=== PATIENT | female | born 1960 | race Caucasian/White ===

== ENCOUNTER 2018-05-07 16:59 | Outpatient (REF) | payer OTHER, SELFPAY ==
--- NOTE | 2018-05-07 14:20 | PAPFT_PTH ---
PATIENT: Marce Garcia LOC: [facility] U#:[id number] AGE/SX: 58/F ROOM: RE05/07/[address]: Eleuterio Knight MD : [id number] BED: DIS: 05/07/2018 SPEC #: [id number] RECD: 05/07/18 18:21 STATUS: AIDE REQ #: [id number] RAFAELA: 05/07/18 14:[address]: Eleuterio Knight DEPT: [facility] Cytology RECD BY: Heidi Casper Tissues: 1 - CX/ENDOCX FOR PAP SMEARS Procedures: PAP THIN PREP/UVM Screening HPV DNA PROBE Comments: [id number]
== END 2018-05-07 17:19 ==
LOC: LBN 16:59
PROVIDERS: PCP Family Medicine; Visit Provider Family Medicine
DX: Z12.4 Encounter for screening for malignant neoplasm of cervix (principal); Z11.51 Encounter for screening for human papillomavirus (HPV)
CPT/HCPCS: 88142; 87624

== ENCOUNTER 2018-06-14 02:39 | Outpatient (CLI) | payer OTHER, SELFPAY | END 2018-06-14 02:59 | PROVIDERS: PCP Family Medicine; Visit Provider Family Medicine | DX: E03.9 Hypothyroidism, unspecified (principal) | CPT/HCPCS: 36415; 84443 ==

== ENCOUNTER 2018-07-17 14:07 | Outpatient (CLI) | payer OTHER, SELFPAY ==
--- NOTE | 2018-07-17 15:10 | DI.RAD_ITS ---
SYMPTOM/DIAGNOSIS: RT UPPER BACK PAIN AFTER COUGH PA AND LATERAL CHEST: No priors for comparison. The heart is normal in size. The lungs are clear. The mediastinal structures and pleura appear intact. CONCLUSION: Normal chest.
[2018-07-17 15:56] LABS: Bilirubin Negative (Negative); Blood Negative (Negative); Clarity Clear; Glucose Negative (Negative); Ketones Negative (Negative); Leukocyte Esterase Negative (Negative); Nitrite Negative (Negative); Urobilinogen 0.2 EU/dL (Up TO 0.2); pH 6.5 (5-8)
== END 2018-07-17 14:27 ==
PROVIDERS: PCP Family Medicine; Visit Provider Family Medicine
DX: R39.11 Hesitancy of micturition (principal); M54.9 Dorsalgia, unspecified; R05 Cough
CPT/HCPCS: 71046; 81003

== ENCOUNTER 2018-08-03 06:05 | Day surgery (SDC) | payer OTHER, SELFPAY ==
[2018-08-03 06:23] VITALS: BP 139/96; PULSE 78; RESP 18; TEMP 36; O2SAT 98
[2018-08-03] MEDS: Lactated Ringers 1,000 ML 30 ML IV (06:49)
--- NOTE | 2018-08-03 09:21 | COLE_ITS ---
Date of service: 08/03/18 Time of Service: 09:17 Colonoscopy Report Date of procedure: 08/03/18 Pre-op diagnosis general: screening colonoscopy Post-op diagnosis procedure note: other (diverticulosis) Procedure: colonoscopy Surgeon: Dewayne Da Silva III Anesthesia proc note operative: MAC Pathology: none sent Complications: Other (scope had difficulty advanciing Dr Tellez assisted in reaching the cecum) Disposition: PACU Prep: GoLYTELY Findings: diverticulum Procedure Description: After informed consent was obtained the patient was taken to the procedure room and placed in a left decubitous position. Monitors were applied and a time out was done. The patients name, date of , procedure, allergies to medications and metal in their body was reviewed. The patient was then sedated. Once sedated and comfortable a rectal exam was done. External exam was normal. Internal exam revealed a normal sphincter tone and no palpable masses. The scope was then introduced and retrofelexed. No internal hemorrhoids were identified. The scope was then advanced to the cecum anatomical difficulty the scope continued to not advance and coil in the sigmoid area. Due to this not being able to advance past the hepatic flexure initially Dr. Tellez assisted and retracted the scope and was able to eventually reach the cecum and see the appendiceal orifice as well as the terminal ileum. The TI and appendiceal orifice were identified. The prep was adequate. The scope was then slowly retracted over 10 minutes back into the rectum. No Polyps were removed. The sco pe was removed and the patient was woken up and taken back to Same day surgery in stable condition. The patient tolerated the procedure well and there were no immediate complications. Follow up: The patient should follow up in 10 years unless they develop changes in bowel habits or other new gastrointestinal complaints.
--- NOTE | 2018-08-03 09:21 | W.PM.DSUDISC ---
Discharge Plan Disposition Patient Disposition: HOME Condition: Stable Discharge Details Reason For Visit: Screening colonoscopy Attending Provider: Dewayne Da Silva III Primary Care Provider: Eleuterio Knight Home Meds and New Rx's Prescriptions: Continued meloxicam 15 mg tablet 15 mg PO ONCE PRNRF: 0 bisacodyl [Dulcolax (bisacodyl)] 5 mg tablet,delayed release (DR/EC) 5 mg PO ONCE Qty: 4 RF: 0 polyethylene glycol 3350 17 gram/dose powder 255 g PO ONCE Qty: 255 RF: 0 ascorbic acid (vitamin C) 1,000 MG tablet 1,000 mg PO DAILY RF: 0 multivitamin with iron 1 EACH tablet 1 ea PO DAILY RF: 0 cholecalciferol (vitamin D3) 1,000 UNIT tablet 1,000 unit PO DAILY RF: 0 omega-3 fatty acids-fish oil 1 EACH capsule 1 ea PO DAILY RF: 0 zinc amino acid chelate 50 MG tablet 50 mg PO DAILY RF: 0 calcium carbonate 600 MG tablet 600 mg PO BID RF: 0 glucosam-chond oe-dqtujl-xf ac 1 EACH capsule 1 ea PO DAILY PRNRF: 0 magnesium amino acid chelate 100 MG tablet 100 mg PO DAILY PRNRF: 0 levothyroxine 175 mcg tablet 175 mcg PO DAILY Qty: 90 RF: 3 cyclobenzaprine 5 mg tablet 5 - 10 mg PO HS PRN (Reason: muscle spasm) Qty: 40 RF: 0 Discharge Instructions Stand Alone Forms: Colonoscopy Post Instructions, Kanwal Mercer (DSU) Activity:: Activity as Tolerated Diet:: As Tolerated Discharge Orders Discharge Orders: Discharge Order (Routine); Ordered 08/03/18 Ordered By: Dewayne Da Silva III DS: Diagnosis Discharge Diagnosis (1) Diverticulosis: Status: Acute (2) Colonoscopy planned: Status: Acute
[2018-08-03 09:53] VITALS: BP 120/75; PULSE 65; RESP 18; TEMP 36.2; O2SAT 98
== END 2018-08-03 10:38 | disposition home or self-care (01) ==
PROVIDERS: PCP Family Medicine; Visit Provider Surgery
PROC: 0DJD8ZZ Inspection of Lower Intestinal Tract, Via Natural or Artificial Opening Endoscopic (ICD-10-PCS; CPT 45378; principal; 2018-08-03 07:30)
DX: Z12.11 Encounter for screening for malignant neoplasm of colon (principal); K57.30 Diverticulosis of large intestine without perforation or abscess without bleeding
CPT/HCPCS: 45378

== ENCOUNTER 2019-05-09 13:28 | Outpatient (CLI) | payer OTHER, SELFPAY ==
--- NOTE | 2019-05-09 13:00 | DI.RAD_ITS ---
EXAM: XR FOOT RT COMPLETE INDICATION: right lateral heel pain, M79.673. COMPARISON: No exams were available for comparison TECHNIQUE: 2D digital imaging was performed. FINDINGS: There are mild degenerative changes of the 1st MTP joint. There is slight spurring at the Achilles i nsertion. Small spur is noted at the plantar fascia. There is no abnormal plantar fascial calcifica tion. IMPRESSION: Heel spur.
== END 2019-05-09 13:48 ==
PROVIDERS: PCP Family Medicine; Visit Provider Family Medicine
DX: M79.671 Pain in right foot (principal); M19.071 Primary osteoarthritis, right ankle and foot; M77.31 Calcaneal spur, right foot
CPT/HCPCS: 73630

== ENCOUNTER 2019-06-05 01:33 | Outpatient (CLI) | payer OTHER, SELFPAY ==
--- NOTE | 2019-06-05 15:14 | DI.MAMMO_ITS ---
EXAM: MAMMO SCREENING CLINICAL HISTORY: screening Z12.31 TECHNIQUE: Mammograms were interpreted according to the usual protocol including computer analysis w [employer] CAD system, tomosynthesis and C-view imaging. COMPARISON: Current examination is compared with previous examinations including July 2017 FINDINGS: Breasts are of moderate density with fairly symmetrical distribution of fibroglandular tissue. No do minant mass or clumped microcalcification is identified in either breast. Current examination is com pared with previous examinations including July 2017 and there has been no gross interval change i n appearance in comparison with the previous studies. IMPRESSION: No specific evidence of malignancy at this time. Routine screening examinations are suggested at year ly intervals due to the family history of breast carcinoma. Category 1, breast density category B. BI-RADS Cat 1 - Negative Breast Density - Category B - Scattered areas of fibroglandular density
== END 2019-06-05 01:53 ==
PROVIDERS: PCP Family Medicine; Visit Provider Family Medicine
DX: Z12.31 Encounter for screening mammogram for malignant neoplasm of breast (principal); Z80.3 Family history of malignant neoplasm of breast
CPT/HCPCS: 77063; 77067

== ENCOUNTER 2019-08-02 00:13 | Outpatient (CLI) | payer OTHER, SELFPAY ==
[2019-08-02 09:20] LABS: HCT 44.5 % (36.0-46.0); HGB 14.8 g/dL (12.0-15.5); Mean Corp. HGB Concentration 33.3 g/dL (32.0-36.0); Mean Corpuscular Hemoglobin 29.5 pg (27.0-33.0); Mean Corpuscular Volume 88.6 fL (80-95); Mean Platelet Volume 9.3 fL (8.0-11.0); Platelet Count 297 x1000/uL (130-400); RBC 5.02 m/cumm (4.00-5.20); RBC Distribution Width 13.1 % (11.7-14.6); White Blood Cell Count 6.11 k/cumm (4.4-10.8)
[2019-08-02 10:49] LABS: ALT 26 U/L (14-59); AST 17 U/L (15-37); Albumin 4.1 g/dL (3.4-5.0); Alkaline Phosphatase 81 U/L (46-116); Anion Gap 7.1 mmol/L (3-11); BUN 17 mg/dL (7-18); Bilirubin, Total 0.7 mg/dL (0.2-1.0); CO2 28.9 mmol/L (21.0-32.0); CREATININE 0.86 mg/dL (0.55-1.02); Chloride 104 mmol/L (98-107); Glucose 90 mg/dL (74-106); Sodium 140 mmol/L (136-145); TSH 0.39 uIU/mL (0.36-3.74); Total Protein 6.9 g/dL (6.4-8.2)
== END 2019-08-02 00:33 ==
PROVIDERS: PCP Family Medicine; Visit Provider Family Medicine
DX: Z00.00 Encounter for general adult medical examination without abnormal findings (principal); E03.9 Hypothyroidism, unspecified
CPT/HCPCS: 36415; 80053; 85027; 84443

== ENCOUNTER 2020-01-24 20:18 | Outpatient (REF) | payer OTHER, SELFPAY | END 2020-01-24 20:38 | LOC: LBN 20:18 | PROVIDERS: PCP Family Medicine; Visit Provider Nurse Practitioner Family | DX: R19.8 Other specified symptoms and signs involving the digestive system and abdomen (principal) | CPT/HCPCS: 87480; 87510; 87660 ==

== ENCOUNTER 2020-01-29 02:24 | Outpatient (CLI) | payer OTHER, SELFPAY ==
--- NOTE | 2020-01-29 08:23 | DI.US_ITS ---
EXAM: US PELVIS TRANSVAGINAL CLINICAL HISTORY: abdominal pain,R10.9,suprapubic tenderness, ? mass lt suprapubic area. TECHNIQUE: Transabdominal and transvaginal pelvic ultrasound was performed using standard protocol. COMPARISON: US PELVIS TRANSVAG from 05/03/2012 FINDINGS: UTERUS: Position: Anteverted. Size: 8.8 long by 6.1 AP by 6.7 transverse cm Endometrium: Obscured by the uterine fibroid. Myometrium: 5.7 x 5.4 x 6.0 cm hypoechoic mass occupying the fundal region of the fibroid and extendi ng into the left adnexa. Echogenic foci are seen internally suggesting calcifications. The finding is most consistent with a uterine fibroid. Cervix: Unremarkable. OVARIES: Right: 2.2 x 1.3 x 1.6. cm Cyst or mass: None. Left: Not seen transabdominally or transvaginally. CUL-DE-SAC: Free fluid: None. Other: None. IMPRESSION: 1. 5.7 x 5.4 x 6.0 cm uterine fibroid. 2. Right ovary is grossly unremarkable. The left ovary was not visualized transabdominally or transv aginally. DATA REPOSITORY:
== END 2020-01-29 02:44 ==
PROVIDERS: PCP Family Medicine; Visit Provider Nurse Practitioner Family
DX: R10.9 Unspecified abdominal pain (principal); D25.9 Leiomyoma of uterus, unspecified
CPT/HCPCS: 76830; 76856

== ENCOUNTER 2020-06-12 03:30 | Outpatient (CLI) | payer OTHER, SELFPAY ==
--- NOTE | 2020-06-12 06:30 | DI.MAMMO_ITS ---
EXAM: MAMMO SCREENING CLINICAL HISTORY: screening,z12.31 TECHNIQUE: Mammograms were interpreted according to the usual protocol including computer analysis w [employer] CAD system, tomosynthesis and C-view imaging. COMPARISON: 2010 through 2018 FINDINGS: The breasts are composed of scattered fibroglandular densities, Breast Density category B. No suspicious masses or suspicious microcalcifications are seen. No skin thickening or abnormal axillary lymph nodes are seen. There has been no significant change from prior exams. IMPRESSION: BI-RADS Category 1, Negative mammogram Yearly screening mammography is recommended. Breast Density - Category B, scattered fibroglandular densities. A negative radiographic report should not delay biopsy if a dominant or clinically suspicious mass is present. Up to ten percent of cancers are not identified on mammography. A negative report may reinforce clinical impression. Adenosis and dense breasts may obscure an underlying neoplasm. False positive reports average 6 to 10%. Patient will receive a letter notifying them of these results.
== END 2020-06-12 03:50 ==
PROVIDERS: PCP Family Medicine; Visit Provider Family Medicine
DX: Z12.31 Encounter for screening mammogram for malignant neoplasm of breast (principal)
CPT/HCPCS: 77063; 77067

== ENCOUNTER 2020-08-24 02:06 | Outpatient (CLI) | payer OTHER, SELFPAY ==
[2020-08-24 12:00] LABS: TSH 0.08 uIU/mL (0.36-3.74)
== END 2020-08-24 02:07 | disposition home or self-care (01) ==
LOC: LBO 02:06
PROVIDERS: PCP Family Medicine; Visit Provider Family Medicine
DX: E03.9 Hypothyroidism, unspecified (principal)
CPT/HCPCS: 36415; 84443

== ENCOUNTER 2020-08-28 01:57 | Outpatient (CLI) | payer OTHER, SELFPAY ==
[2020-08-29 13:59] LABS: COVID-19 RT-PCR UVMMC Result Negative (Negative)
== END 2020-08-28 01:58 | disposition home or self-care (01) ==
LOC: LBO 01:58
PROVIDERS: PCP Family Medicine; Visit Provider Student in an Organized Health Care Education/Training Program
DX: Z20.828 Contact with and (suspected) exposure to other viral communicable diseases (principal); Z01.818 Encounter for other preprocedural examination
CPT/HCPCS: U0003

== ENCOUNTER 2020-09-01 12:32 | Day surgery (SDC) | payer OTHER, SELFPAY ==
--- NOTE | 2020-09-01 09:56 | W.PM.DSUDISC ---
Discharge Plan Disposition Patient Disposition: HOME Condition: Good Discharge Details Reason For Visit: Left carpal tunnel syndrome Attending Provider: Maycol Fuchs Primary Care Provider: Eleuterio Knight Home Meds and New Rx's Prescriptions: New acetaminophen 500 mg tablet 500 mg PO Q6H PRN (Reason: pain) Qty: 60 RF: 2 hydrocodone-acetaminophen 5-325 mg tablet 1 tab PO Q6H PRN (Reason: severe pain) Qty: 4 RF: 0 Continued meloxicam 15 mg tablet 15 mg PO ONCE PRNRF: 0 ascorbic acid (vitamin C) 1,000 MG tablet 1,000 mg PO DAILY RF: 0 multivitamin with iron 1 EACH tablet 1 ea PO DAILY RF: 0 cholecalciferol (vitamin D3) 1,000 UNIT tablet 1,000 unit PO DAILY RF: 0 omega-3 fatty acids-fish oil 1 EACH capsule 1 ea PO DAILY RF: 0 zinc amino acid chelate 50 MG tablet 50 mg PO DAILY RF: 0 calcium carbonate 600 MG tablet 600 mg PO BID RF: 0 glucosam-chond eu-xogbar-bk ac 1 EACH capsule 1 ea PO DAILY PRNRF: 0 magnesium amino acid chelate 100 MG tablet 100 mg PO DAILY PRNRF: 0 levothyroxine 175 mcg tablet 175 mcg PO DAILY Qty: 90 RF: 3 hydrochlorothiazide 25 mg tablet 12.5 mg PO QAM Qty: 45 RF: 3 Discharge Instructions Stand Alone Forms: Jef Womack Tunnel Release Referrals: Maycol Fuchs MD [ [facility] STAFF PHYSICIAN] - Activity:: Elevate Remove Dressings/Wound Care:: 72 hours Shower/Bathe:: 72 hours Diet:: As Tolerated Discharge Orders Discharge Orders: Discharge Order (Routine); Ordered 09/01/20 Ordered By: Carolyn Bragg DS: Diagnosis Discharge Diagnosis (1) Carpal tunnel syndrome of left wrist: Status: Acute
[2020-09-01 12:48] VITALS: BP 154/97; PULSE 74; RESP 18; TEMP 36.7; O2SAT 98
[2020-09-01] MEDS: Lactated Ringers 1,000 ML 80 ML IV (13:15)
[2020-09-01] MEDS: ceFAZolin 2 GM/50 ML BAG IVPB (14:52)
[2020-09-01] MEDS: Sodium Bicarbonate 50 MEQ/50 ML VIAL (15:18)
[2020-09-01 15:54] VITALS: BP 131/85; PULSE 55; RESP 16; O2SAT 97
--- NOTE | 2020-09-01 17:18 | W.PM.OP ---
Date of service: 09/01/20 Time of Service: 15:18 Operative Note Operative Note DATE OF PROCEDURE: 09/01/20 PRE-OP DIAGNOSIS: Left Carpal Tunnel Syndrome POST-OP DIAGNOSIS: same PROCEDURE: Left Endoscopic Carpal Tunnel Release SURGEON: Maycol Fuchs ANESTHESIA TYPE: General:No Airway Refer to Anesthesia Record ESTIMATED BLOOD LOSS: 0 PATHOLOGY: none sent TOURNIQUET TIME: 6 COMPLICATIONS: None Patient was transported to: same day Patient's condition: stable Indications: I have seen Marce in clinic for symptoms of carpal tunnel syndrome. The numbness, tingling, and pain limited function. Clinical exam findings with nerve conduction tests confirmed the diagnosis of carpal tunnel syndrome. Nonoperative measures such as bracing, time, activity modifications had been tried but disability and pain persisted. I discussed carpal tunnel release with the patient. I reviewed the risks of the procedure to include, but not limited to, bleeding, infection, pain, stiffness, incomplete release, damage to nerves or vessels, persistent numbness, recurrence. Despite these risks, the patient elected to proceed. Findings: There was tightened carpal tunnel. This was dilated and released successfully with the endoscopic with increased space within the tunnel. The antebrachial fascia was released proximally freeing the median nerve at the wrist. Procedure Description: Marce was greeted in the preoperative holding area where the correct side was identified and marked. The consent was reviewed with the patient and signed. The history and physical was updated. All questions were answered. She was taken back to the operating room. The patient was placed into the supine position on the operating room table with the left arm on an arm board. A nonsterile tourniquet was placed high onto the arm. All bony prominences were well padded. Prophylactic antibiotics in the form of Cefazolin were administered. The left arm was then prepped with Chloraprep and draped in a standard fashion with stockinette and extremity drape. A timeout to confirm correct identity, side and site, procedure, allergies, anesthesia, and medical concerns was performed. The surgical site was marked in the volar wrist creases in line with the radial border of the fourth ray. This area was anesthetized with approximately 6cc of 1% Lidocaine. The limb was then exsanguinated with an Esmarch. The skin was incised with a 15 blade, approximately 1cm. The skin only was cut and the deeper tissue was dissected bluntly with a tenotomy scissor, avoiding passing nerve and venous structures. The fascia was penetrated and opened bluntly. A two-prong skin hook was placed under this proximal fascial edge. A series of hamate finders were used to identify and dilate the carpal tunnel. Synovial elevator was used to free synovial attachments to the underside of the transverse carpal ligament. My thumb was kept in the palm to carmen the distal extent of the carpal tunnel and correctly position the hand. The [employer] endoscope was inserted without difficulty and without resistance. Excellent visualization showed horizontally running fibers of the transverse carpal ligament (TCL). The distal extent of the TCL was visualized and the end of the scope palpated with the thumb. The blade was elevated and withdrawn from distal to proximal. The TCL was split into two flaps. The endoscope was reinserted to confirm complete release and any remnant ligament was incised. The scope was withdrawn and the proximal aspect of the carpal tunnel was grossly inspected and appeared release with the median nerve visible. The antebrachial fascia at the level of the wrist was then freed from the overlying skin and then the underlying median nerve with blunt dissection. This was transected longitudinally for about 3cm proximal to the wrist incision. The wound was then irrigated with easy flow of irrigant distally and proximally. The incision was closed with a single 4-0 Nylon suture. The wound was dressed with Xeroform, Gauze, Kerlix and Raymundo. The tourniquet was deflated with the initial dressing and held with some pressure. Blood flow returned easily to all digits with capillary refill less than 2 seconds. The patient tolerated the procedure well and was returned to the Same Day Surgery area in a stable condition suffering no known complication.
== END 2020-09-01 16:12 | disposition home or self-care (01) ==
LOC: SUR 12:32
PROVIDERS: PCP Family Medicine; Visit Provider Student in an Organized Health Care Education/Training Program
PROC: 01N54ZZ Release Median Nerve, Percutaneous Endoscopic Approach (ICD-10-PCS; CPT 29848; principal; 2020-09-01 14:45)
DX: G56.02 Carpal tunnel syndrome, left upper limb (principal); E03.9 Hypothyroidism, unspecified; M54.40 Lumbago with sciatica, unspecified side
CPT/HCPCS: 29848; J0690; J2001

== ENCOUNTER 2020-11-04 03:38 | Outpatient (CLI) | payer OTHER, SELFPAY ==
[2020-11-04 10:55] LABS: TSH 0.79 uIU/mL (0.36-3.74)
== END 2020-11-04 03:39 | disposition home or self-care (01) ==
LOC: LBO 03:38
PROVIDERS: Nurse Practitioner; PCP Family Medicine; Visit Provider Family Medicine
DX: E03.9 Hypothyroidism, unspecified (principal)
CPT/HCPCS: 36415; 84443

== ENCOUNTER 2021-05-21 03:51 | Outpatient (CLI) | payer OTHER, SELFPAY ==
[2021-05-21 14:14] LABS: BUN 18 mg/dL (7-18); CREATININE 0.9 mg/dL (0.55-1.02); Calcium 9.4 mg/dL (8.5-10.1); Glucose 81 mg/dL (74-106)
[2021-05-21 14:15] LABS: Anion Gap 8.1 mmol/L (3-11); CO2 29.9 mmol/L (21.0-32.0); Calculated LDL 128 mg/dL (<100); Chloride 104 mmol/L (98-107); Cholesterol 233 mg/dL (<200); HDL Cholesterol 85 mg/dL (40-60); Sodium 142 mmol/L (136-145); Triglyceride 100 mg/dL (<150)
[2021-05-24 09:33] LABS: Hepatitis C Ab w Rflx HCV PCR Negative (Negative)
== END 2021-05-21 03:52 | disposition home or self-care (01) ==
LOC: LBO 03:51
PROVIDERS: PCP Family Medicine; Visit Provider Family Medicine
DX: I10 Essential (primary) hypertension (principal); Z00.00 Encounter for general adult medical examination without abnormal findings; Z11.59 Encounter for screening for other viral diseases
CPT/HCPCS: 36415; 80048; 80061; 86803

== ENCOUNTER 2021-07-06 01:46 | Outpatient (CLI) | payer OTHER, SELFPAY ==
--- NOTE | 2021-07-06 07:30 | DI.MAMMO_ITS ---
Exam(s) MAMMO SCREENING EXAM: MAMMO SCREENING CLINICAL HISTORY: screening,z12.39. TECHNIQUE: Bilateral full field digital CC and MLO mammographic images were obtained with 3D tomosyn thesis and utilizing computer aided detection (CAD). COMPARISON: Prior mammograms dating back to 2011, the most recent being June 2020. Family history. Her mother was diagnosed with breast cancer at age 60 FINDINGS: No new significant radiograph findings in left breast. Small benign-appearing nodule anteriorly in the right breast is unchanged from prior studies. There are no new spiculated masses nor malignant appearing microcalcification groups. There is no significant architectural distortion nor skin thickening-retraction. IMPRESSION: No radiographic evidence of malignancy. BI-RADS Category 1 Breast Density-Category B Breast density Category C or D implies that the patient has dense breast tissue. Dense breast tissue can make it harder to find cancer on a mammogram. Dense breast tissue is also associated with an incr eased risk of breast cancer. This information about the result of the mammogram report was provided to the patient to raise their awareness. Use this report when you speak with the patient about their risks for breast cancer, which includes their family history. At that time, you may recommend additional screening tests (Ultrasoun d or MRI) as these tests may add significant information. A negative radiographic report should not delay biopsy if a dominant or clinically suspicious mass is present. Up to ten percent of cancers are not identified on mammography. A negative report may reinforce clinical impression. Adenosis and dense breasts may obscure an underlying neoplasm. False positive reports average 6 to 10%. Patient will receive a letter notifying them of these results.
== END 2021-07-06 02:06 ==
PROVIDERS: PCP Family Medicine; Visit Provider Family Medicine
DX: Z12.31 Encounter for screening mammogram for malignant neoplasm of breast (principal); Z80.3 Family history of malignant neoplasm of breast
CPT/HCPCS: 77063; 77067

== ENCOUNTER 2022-03-22 03:46 | Outpatient (CLI) | payer OTHER, SELFPAY ==
[2022-03-22 13:00] LABS: TSH (W/Ref FT4) 1.36 uIU/mL (0.36-3.74)
== END 2022-03-22 03:47 | disposition home or self-care (01) ==
LOC: LOS 03:46
PROVIDERS: PCP Family Medicine; Visit Provider Family Medicine
DX: E03.9 Hypothyroidism, unspecified (principal)
CPT/HCPCS: 36415; 84443

== ENCOUNTER 2022-08-02 18:25 | Outpatient (REF) | payer OTHER, SELFPAY ==
--- NOTE | 2022-08-02 12:25 | PAPFT_PTH ---
PATIENT: Marce Garcia LOC: [facility] #:[id number] AGE/SX: 62/F ROOM: RE08/02/[address]: Ana Ramon NP : 1960 BED: DIS: 08/02/2022 SPEC #: [id number] RECD: 08/03/22 13:01 STATUS: AIDE REMolly #: [id number] RAFAELA: 08/02/22 12:[address]: Ana Ramon DEPT: [facility] Cytology RECD BY: Heidi Casper Tissues: 1 - CX/ENDOCX FOR PAP SMEARS Procedures: PAP THIN PREP/UVM Screening HPV DNA PROBE Comments: [id number]
== END 2022-08-02 18:26 | disposition home or self-care (01) ==
LOC: LBN 18:25
PROVIDERS: PCP Nurse Practitioner Family; Visit Provider Nurse Practitioner Family
DX: Z12.4 Encounter for screening for malignant neoplasm of cervix (principal); Z11.51 Encounter for screening for human papillomavirus (HPV)
CPT/HCPCS: 88142; 87624

== ENCOUNTER 2022-08-23 01:08 | Outpatient (CLI) | payer OTHER, SELFPAY ==
--- NOTE | 2022-08-23 06:30 | DI.MAMMO_ITS ---
Exam(s) MAMMO SCREENING EXAM: MAMMO SCREENING CLINICAL HISTORY: screening.z12.39. TECHNIQUE: Bilateral full field digital CC and MLO mammographic images were obtained with 3D tomosyn thesis and utilizing computer aided detection (CAD). COMPARISON: Prior mammograms were reviewed. FINDINGS: There has been no significant change in the appearance and distribution of the fibroglandular tissue. Small benign-appearing nodule in the right axillary tail is unchanged from prior mammograms and proba shelli a benign lymph node. There are no new spiculated masses nor malignant appearing microcalcification groups. There is no significant architectural distortion nor skin thickening-retraction. IMPRESSION: No radiographic evidence of malignancy. BI-RADS Category 1 - Negative Breast Density - Category B - Scattered areas of fibroglandular density Breast density Category C or D implies that the patient has dense breast tissue. Dense breast tissue can make it harder to find cancer on a mammogram. Dense breast tissue is also associated with an incr eased risk of breast cancer. This information about the result of the mammogram report was provided to the patient to raise their awareness. Use this report when you speak with the patient about their risks for breast cancer, which includes their family history. At that time, you may recommend additional screening tests (Ultrasoun d or MRI) as these tests may add significant information. A negative radiographic report should not delay biopsy if a dominant or clinically suspicious mass is present. Up to ten percent of cancers are not identified on mammography. A negative report may reinforce clinical impression. Adenosis and dense breasts may obscure an underlying neoplasm. False positive reports average 6 to 10%. Patient will receive a letter notifying them of these results.
== END 2022-08-23 01:28 ==
LOC: DI 01:08
PROVIDERS: PCP Family Medicine; Visit Provider Nurse Practitioner Family
DX: Z12.31 Encounter for screening mammogram for malignant neoplasm of breast (principal)
CPT/HCPCS: 77063; 77067

== ENCOUNTER 2023-03-24 02:59 | Outpatient (CLI) | payer OTHER, SELFPAY ==
[2023-03-24 08:23] LABS: HCT 46.3 % (36.0-46.0); HGB 15.4 g/dL (11.2-15.7); MCH 29.3 pg (27.0-33.0); MCHC 33.3 % (32.0-36.0); MCV 88 fL (80-95); MPV 8.9 fL (8.0-11.0); Platelet Count 280 10^3/uL (130-400); RBC 5.26 10^6/uL (3.93-5.22); RDW 12.8 % (11.7-14.6); RDW-SD 41.3 fL; WBC 5.85 10^3/uL (4.4-10.8)
[2023-03-24 09:31] LABS: ALT 46 U/L (14-59); AST 26 U/L (15-37); Albumin 3.9 g/dL (3.4-5.0); Alkaline Phosphatase 104 U/L (46-116); Anion Gap 6.2 mmol/L (3-11); BUN 11 mg/dL (7-18); Bilirubin, Total 0.7 mg/dL (0.2-1.0); CO2 28.8 mmol/L (21.0-32.0); CREATININE 0.8 mg/dL (0.55-1.02); Calcium 9.5 mg/dL (8.5-10.1); Calculated LDL 135 mg/dL (<100); Chloride 103 mmol/L (98-107); Cholesterol 234 mg/dL (<200); Glucose 96 mg/dL (74-106); HDL Cholesterol 87 mg/dL (40-60); Potassium 4.1 mmol/L (3.5-5.1); Sodium 138 mmol/L (136-145); TSH (W/Ref FT4) 0.74 uIU/mL (0.36-3.74); Total Protein 7.5 g/dL (6.4-8.2); Triglyceride 63 mg/dL (<150)
== END 2023-03-24 03:00 | disposition home or self-care (01) ==
LOC: LBO 03:01
PROVIDERS: PCP Family Medicine; Visit Provider Nurse Practitioner Family
DX: E03.9 Hypothyroidism, unspecified (principal); E66.9 Obesity, unspecified; H93.13 Tinnitus, bilateral; I10 Essential (primary) hypertension
CPT/HCPCS: 36415; 80053; 80061; 85027; 84443

== ENCOUNTER → 2023-07-21 10:10 | Outpatient (CLI) | payer OTHER, SELFPAY ==
--- NOTE | 2023-07-21 09:30 | DI.RAD_ITS ---
Exam(s) XR ELBOW LT COMPLETE EXAM: XR ELBOW LT COMPLETE CLINICAL HISTORY: M25.522 Pain left elbow, eval pathology. TECHNIQUE: 2D digital imaging was performed of the left elbow. Three images were obtained. AP, lat eral and oblique views were obtained. COMPARISON: No exams were available for comparison FINDINGS: BONES: No acute fracture is present. No bony destructive lesion is seen. JOINTS: The elbow is normally aligned. No joint effusion is seen. There are degenerative changes seen in the elbow with joint space narrowing and osteophytes predominantly involving the head of the radi us. There is a oblong density seen which may be within the joint space. SOFT TISSUE: Normal. IMPRESSION: 1. No acute fracture or dislocation. 2. Degenerative changes in the elbow. 3. Possible density seen anterior to the distal humerus which may lie within the joint space. DATA REPOSITORY: RADIATION DOSE DELIVERED:
== END ==
PROVIDERS: PCP Family Medicine; Visit Provider Nurse Practitioner Family
DX: M25.522 Pain in left elbow (principal)
CPT/HCPCS: 73080

== ENCOUNTER → 2023-08-16 12:25 | Outpatient (CLI) | payer OTHER, SELFPAY ==
--- NOTE | 2023-08-16 12:00 | DI.RAD_ITS ---
Exam(s) XR HIP RT COMPLETE AP PELVIS EXAM: XR HIP RT COMPLETE AP PELVIS CLINICAL HISTORY: right hip OA, degenerative joint disease rt hip, M16.11. TECHNIQUE: 2D digital imaging was performed. Two views COMPARISON: CR RT HIP COMPLETE AP PELVIS from 12/28/2015 FINDINGS: BONES: No acute fracture is present. No bony destructive lesion is seen. JOINTS: No dislocation present. Mild narrowing right hip joint space. Mild periarticular spurring. Minimal spurring at the margin of the right femoral head. Left hip joint space is maintained. Mil d degenerative changes of left SI joint. Severe disc space narrowing noted at L4-5. SOFT TISSUE: Normal. IMPRESSION: Mild degenerative changes of the right hip DATA REPOSITORY: RADIATION DOSE DELIVERED:
== END ==
PROVIDERS: PCP Family Medicine; Visit Provider Family Medicine
DX: M16.11 Unilateral primary osteoarthritis, right hip (principal)
CPT/HCPCS: 73502

== ENCOUNTER → 2023-09-11 03:13 | Outpatient (CLI) | payer OTHER, SELFPAY ==
--- NOTE | 2023-09-11 13:02 | DI.MAMMO_ITS ---
Exam(s) MAMMO SCREENING EXAM: MAMMO SCREENING CLINICAL HISTORY: screening, Z12.39 TECHNIQUE: Mammograms were interpreted according to the usual protocol including computer analysis w [employer] CAD system, tomosynthesis and C-view imaging. COMPARISON: 2014 through 2022 FINDINGS: The breasts are composed of scattered fibroglandular densities, Breast Density category B. No suspicious masses or suspicious microcalcifications are seen. In the subareolar region of the lef t breast, there is a circumscribed nodule measuring proximally 13 millimeters. No skin thickening or abnormal axillary lymph nodes are seen. There has been no significant change in the right breast from prior exams. IMPRESSION: New area of nodularity in the subareolar region of the left breast. Spot compression views and ultra sound recommended for further evaluation. BI-RADS Category 0 - Assessment Incomplete: Need additional imaging evaluation Breast Density - Category B, scattered fibroglandular densities. A negative radiographic report should not delay biopsy if a dominant or clinically suspicious mass is present. Up to ten percent of cancers are not identified on mammography. A negative report may reinforce clinical impression. Adenosis and dense breasts may obscure an underlying neoplasm. False positive reports average 6 to 10%. Patient will receive a letter notifying them of these results.
== END ==
PROVIDERS: PCP Family Medicine; Visit Provider Family Medicine
DX: Z12.31 Encounter for screening mammogram for malignant neoplasm of breast (principal)
CPT/HCPCS: 77063; 77067

== ENCOUNTER → 2023-09-18 01:48 | Outpatient (CLI) | payer OTHER, SELFPAY ==
--- NOTE | 2023-09-18 | DI.US_ITS ---
Exam(s) MG MAMMO SCREEN CALL BACK UNI US BREAST LT LIMITED EXAM: MG MAMMO SCREEN CALL BACK UNI and U/S breast LT limited CLINICAL HISTORY: NEW AREA NODULARITY SUBAREOLAR REGION LEFT BREAST R92.8 ABNL MAMMO. TECHNIQUE: Craniocaudal and mediolateral oblique Full Field Digital Mammography views of the left br east with Computer Aided Diagnosis followed by Tomosynthesis and left breast ultrasound. COMPARISON: Comparison is made with prior examinations. FINDINGS: Mammography/Tomosynthesis: Masses/Architectural Distortion: The area of asymmetric breast tissue in the retroareolar region is a gain seen. No architectural distortion or associated microcalcifications are seen. Microcalcifictions: No suspicious pleomorphic-type are seen. Skin Thickening/Nipple Retraction: None. Limited left breast US: Echotexture: Normal appearance of the glandular tissue. Shadowing: No suspicious foci. Cyst: There is a 5 mm simple cyst at the 12 o'clock position of the left breast in the retroareolar r egion. Solid lesions: There is asymmetric breast tissue seen at the 12 o'clock position of the left breast w hich likely accounts for the mammographic finding. There are associated ducts and a simple cyst noted . Ductal dilation: None. IMPRESSION: 1. No definite evidence of malignancy is noted. 2. A 3 month follow-up left mammogram is recommended for re-evaluation. 3. The findings were discussed with the patient on the date of the examination. BI-RADS Category 3 - Probably Benign Finding: Recommend follow-up imaging in 3 months Breast Density - Category B - Scattered areas of fibroglandular density Breast density Category C or D implies that the patient has dense breast tissue. Dense breast tissue can make it harder to find cancer on a mammogram. Dense breast tissue is also associated with an incr eased risk of breast cancer. This information about the result of the mammogram report was provided to the patient to raise their awareness. Use this report when you speak with the patient about their risks for breast cancer, which includes their family history. At that time, you may recommend additional screening tests (Ultrasoun d or MRI) as these tests may add significant information. A negative radiographic report should not delay biopsy if a dominant or clinically suspicious mass is present. Up to ten percent of cancers are not identified on mammography. A negative report may reinforce clinical impression. Adenosis and dense breasts may obscure an underlying neoplasm. False positive reports average 6 to 10%. Patient will receive a letter notifying them of these results.
== END ==
PROVIDERS: PCP Family Medicine; Visit Provider Family Medicine
DX: Z12.31 Encounter for screening mammogram for malignant neoplasm of breast (principal); R92.8 Other abnormal and inconclusive findings on diagnostic imaging of breast
CPT/HCPCS: 76642; 77063; 77067

== ENCOUNTER → 2023-12-22 | Outpatient (CLI) | payer OTHER, SELFPAY ==
--- NOTE | 2023-12-22 07:45 | DI.US_ITS ---
Exam(s) US BREAST LT COMPLETE MG MAMMO DIAGNOSTIC UNI EXAM: MG MAMMO DIAGNOSTIC UNI-LEFT AND COMPLETE LEFT BREAST ULTRASOUND CLINICAL HISTORY: 3 month follow up,R92.8,Z09, LT BREAST SIMPLE CYST,ASYMMETRIC TISSUE. TECHNIQUE: Unilateral LEFT BREAST spot mammographic images were obtained with 3D tomosynthesis techn ique and utilizing computer aided detection (CAD). COMPLETE LEFT BREAST ULTRASOUND was performed including all 4 quadrants as well as the retroareolar r egion and left axilla. COMPARISON: Prior mammograms were reviewed, the most recent being September 2023. Today's the three-mon follow-up. Prior ultrasound of September 2023 was also reviewed. FINDINGS: DIAGNOSTIC LEFT BREAST MAMMOGRAM: The finding in the retroareolar region is unchanged. No other mammographic findings of significant. Proceeded to ultrasound... COMPLETE LEFT BREAST ULTRASOUND: Findings are again noted in the retroareolar 12 o'clock position. There is a 4 millimeter microcyst again noted at this level. Immediately adjacent to is the more solid-appearing finding which measure s approximately 1.7 x 0.8 cm, this accounting for the finding on the mammogram. This is slightly lob ulated, wider than taller and with neutral through transmission. There are no other focal findings in the 4 quadrants of the left breast. Scanning of the axilla is negative for adenopathy IMPRESSION: Left breast retroareolar region finding as above. Recommend ultrasound-guided core biopsy of the solid component of this finding which corresponds to t he recent new finding on the mammogram. Findings are recommendations were discussed by myself with the patient today Findings are recommendations were also called by myself today to the referring physicians nurse-pract carmencita. BI-RADS Category 4 - Suspicious Abnormality: Biopsy should be considered Breast Density - Category B - Scattered areas of fibroglandular density Breast density Category C or D implies that the patient has dense breast tissue. Dense breast tissue can make it harder to find cancer on a mammogram. Dense breast tissue is also associated with an incr eased risk of breast cancer. This information about the result of the mammogram report was provided to the patient to raise their awareness. Use this report when you speak with the patient about their risks for breast cancer, which includes their family history. At that time, you may recommend additional screening tests (Ultrasoun d or MRI) as these tests may add significant information. A negative radiographic report should not delay biopsy if a dominant or clinically suspicious mass is present. Up to ten percent of cancers are not identified on mammography. A negative report may reinforce clinical impression. Adenosis and dense breasts may obscure an underlying neoplasm. False positive reports average 6 to 10%. Patient will receive a letter notifying them of these results.
== END ==
PROVIDERS: PCP Family Medicine; Visit Provider Family Medicine
DX: Z09 Encounter for follow-up examination after completed treatment for conditions other than malignant neoplasm (principal); R92.8 Other abnormal and inconclusive findings on diagnostic imaging of breast
CPT/HCPCS: 76642; 77061; 77065; G0279

== ENCOUNTER → 2024-01-10 14:40 | Outpatient (CLI) | payer OTHER, SELFPAY ==
--- NOTE | 2024-01-10 14:55 | DI.RAD_ITS ---
Exam(s) XR WRIST RT COMPL NAVICULAR EXAM: XR WRIST RT COMPL NAVICULAR CLINICAL HISTORY: wrist injury, T14.90XA. TECHNIQUE: 2D digital imaging was performed of the right wrist. Four views were obtained. Scaphoid, PA, lateral and oblique views were obtained. COMPARISON: No exams were available for comparison FINDINGS: BONES: There is a nondisplaced fracture through the distal metaphysis of the right radius. No bony d estructive lesion is seen. JOINTS: The carpal bones are normally aligned. SOFT TISSUE: There is mild soft tissue swelling around the wrist. IMPRESSION: Nondisplaced fracture of the distal metaphysis of the right radius. Unexpected findings DATA REPOSITORY: RADIATION DOSE DELIVERED:
== END ==
PROVIDERS: PCP Family Medicine; Visit Provider Physician Assistant
DX: T14.90XA Injury, unspecified, initial encounter (principal)
CPT/HCPCS: 73110

== ENCOUNTER 2024-01-25 13:35 | Outpatient (CLI) | payer OTHER, SELFPAY ==
--- NOTE | 2024-01-25 10:17 | DI.RAD_ITS ---
Exam(s) XR WRIST RT LIMITED EXAM: XR WRIST RT LIMITED CLINICAL HISTORY: F/U R DISTAL RAD FX. TECHNIQUE: 2D digital imaging was performed. COMPARISON: CR XR WRIST RT COMPL NAVICULAR from 01/10/2024 FINDINGS: Views-AP and lateral Nondisplaced fracture of the distal radius is again noted. Fracture line still evident. Does not ex hibit intra-articular involvement nor prominent impaction. There is no significant ulnar variance. Ulnar styloid is intact. No obvious scaphoid fracture. Scapholunate distance is normal. IMPRESSION: Nondisplaced non angulated fracture of the distal radius again noted. No significant ulnar variance DATA REPOSITORY: RADIATION DOSE DELIVERED:
== END 2024-01-25 13:36 | disposition home or self-care (01) ==
LOC: DIORS 13:35
PROVIDERS: PCP Family Medicine; Visit Provider Physician Assistant
DX: S52.501D Unspecified fracture of the lower end of right radius, subsequent encounter for closed fracture with routine healing (principal)
CPT/HCPCS: 73100

== ENCOUNTER → 2024-01-29 00:59 | Outpatient (CLI) | payer OTHER, SELFPAY ==
--- NOTE | 2024-01-29 07:00 | DI.DEXA_ITS ---
Exam(s) XR DEXA BONE DENSITY W/WO SANTOS EXAM: XR DEXA BONE DENSITY W/WO SANTOS CLINICAL HISTORY: Recent right wrist fracture,screening for osteoporosis in postmenopausal TECHNIQUE: COMPARISON: No exams were available for comparison FINDINGS: Lateral Spine Image: Unremarkable. No compression deformities identified. Left hip: Total T-Score: -0.1 Total Z-Score: 0.9 T- and Z-scores: Within normal limits. Lumbar Spine: Total T-Score: 0.1 Total Z-Score: 1.6 T- and Z-scores: Within normal limits. IMPRESSION: No evidence of osteoporosis.
== END ==
PROVIDERS: PCP Family Medicine; Visit Provider Family Medicine
DX: S52.91XA Unspecified fracture of right forearm, initial encounter for closed fracture (principal); Z78.0 Asymptomatic menopausal state
CPT/HCPCS: 77080

== ENCOUNTER 2024-02-22 10:05 | Outpatient (CLI) | payer OTHER, SELFPAY ==
--- NOTE | 2024-02-22 09:30 | DI.RAD_ITS ---
Exam(s) XR WRIST RT LIMITED EXAM: XR WRIST RT LIMITED CLINICAL HISTORY: F/U R DISTAL RADIUS FX. TECHNIQUE: 2D digital imaging was performed of the right wrist. Two views were obtained. PA and la teral views were obtained. COMPARISON: CR XR WRIST RT LIMITED from 01/25/2024 FINDINGS: BONES: There has been no change in alignment of the nondisplaced distal radial fracture. The fractur e line is still partially visualized suggesting some interval healing. No new fracture is seen. No bony destructive lesion is seen. JOINTS: The carpal bones are normally aligned. SOFT TISSUE: Normal. IMPRESSION: Stable alignment of the distal radial fracture. DATA REPOSITORY: RADIATION DOSE DELIVERED:
== END 2024-02-22 10:06 | disposition home or self-care (01) ==
LOC: DIORS 10:05
PROVIDERS: PCP Family Medicine; Visit Provider Student in an Organized Health Care Education/Training Program
DX: S52.591D Other fractures of lower end of right radius, subsequent encounter for closed fracture with routine healing (principal); X58.XXXD Exposure to other specified factors, subsequent encounter
CPT/HCPCS: 73100

== ENCOUNTER 2024-03-27 02:13 | Outpatient (CLI) | payer OTHER, SELFPAY ==
--- NOTE | 2024-03-27 | DI.US_ITS ---
Exam(s) US NEEDLE LOCAL BREAST WO RAD EXAM: US NEEDLE LOCAL BREAST WO RAD CLINICAL HISTORY: LT BREAST MASS, ULTRASOUND GUIDED BX. Right Breast. Left Breast. TECHNIQUE: Ultrasound was provided for Dr. Yung Dangelo for guidance with performing left breast biop sy. COMPARISON: MG MG MAMMO DIAGNOSTIC UNI from 12/22/2023 US US BREAST LT COMPLETE from 12/22/2023 FINDINGS: Hard copy images again demonstrate the nodule in the subareolar region. Images show a needle extendi ng into the lesion. Please see procedure note for details. IMPRESSION: Successful Ultrasound-guided Breast Biopsy.
--- NOTE | 2024-03-27 13:51 | BREAST_PTH ---
PATIENT: Marce Garcia LOC: [facility] U#:[id number] AGE/SX: 63/F ROOM: RE03/27/[address]: Yung Dangelo MD : 1960 BED: DIS: 03/27/2024 SPEC #: [id number] RECD: 03/27/24 17:10 STATUS: AIDE REQ #: [id number] RAFAELA: 03/27/24 13:[address]: Yung Dangelo DEPT: Surgical Specimen RECD BY: Heidi Casper ENTERED: 03/27/24 17:11 SP TYPE: Breast OTHR DR: Corrine Oleary Tissues: 1 - BREAST BX NEEDLE Procedures: GROSS AND MICRO LEVEL 4 Comments: [id number]
[2024-03-27] MEDS: Lidocaine 1% Pres-Free 5 ML VIAL IJ (14:09)
--- NOTE | 2024-03-27 15:05 | W.PROCNOTE ---
Date of service: 03/27/24 Time of Service: 15:05 Procedure Note Date of procedure: 03/27/24 Procedure: Ultrasound-guided core needle biopsy of left breast Surgeon/Proceduralist/Physician: Yung Dangelo Procedure Diagnosis: Left breast lesion Procedure Indications: Marce is a 63-year-old woman who was undergoing routine screening mammography when an abnormality was appreciated in the left breast. This was followed up with an ultrasound that demonstrated a suspicious lesion in the retroareolar position around 12:00 on the left breast. She was advised to undergo core needle biopsy. Procedure Description: I met with Marce in the ultrasound department, and explained the process of core needle biopsy, what to expect. She was able to provide informed consent and agreed that the left side was the correct side. Next, the lesion that was previously seen on her left breast ultrasound was again visualized. It appeared consistent to me compared with her previous study. Skin adjacent to the ultrasound probe was then prepped, and using real-time ultrasound guidance, I instilled local anesthetic along the trajectory of the planned biopsy. I raised a small skin wheal as well. Next, I incised the skin with an 11 blade scalpel. Then, with real-time ultrasound guidance, I advanced a 22 mm Bard core needle biopsy device up to the edge of the lesion. Specimen was obtained. This was repeated 2 more times with satisfactory tissue samples. Next, radiopaque marker was used to identify the location of the biopsies. Held some pressure over the biopsy site, and applied a Band-Aid to the percutaneous access site. She tolerated the procedure well, postoperative instructions were explained.
== END 2024-03-27 02:33 ==
LOC: DI 02:13
PROVIDERS: PCP Family Medicine; Visit Provider Surgery
DX: N60.32 Fibrosclerosis of left breast (principal); N60.92 Unspecified benign mammary dysplasia of left breast; N60.82 Other benign mammary dysplasias of left breast
CPT/HCPCS: 19083; 88305; 76942; J2003

== ENCOUNTER 2024-04-04 13:31 | Outpatient (CLI) | payer OTHER, SELFPAY ==
--- NOTE | 2024-04-04 09:59 | DI.RAD_ITS ---
Exam(s) XR WRIST RT LIMITED EXAM: XR WRIST RT LIMITED CLINICAL HISTORY: F/U FRACTURE. TECHNIQUE: 2D digital imaging was performed of the right wrist. Two views were obtained. PA and la teral views were obtained. COMPARISON: CR XR WRIST RT LIMITED from 02/22/2024 FINDINGS: BONES: The distal right radial fracture appears well healed. No fracture line is seen. No new fract ures identified. No bony destructive lesion is seen. JOINTS: The carpal bones are normally aligned. SOFT TISSUE: Normal. IMPRESSION: Healed distal right radial fracture. DATA REPOSITORY: RADIATION DOSE DELIVERED:
== END 2024-04-04 13:32 | disposition home or self-care (01) ==
LOC: DIORS 13:31
PROVIDERS: PCP Family Medicine; Visit Provider Physician Assistant
DX: S52.124D Nondisplaced fracture of head of right radius, subsequent encounter for closed fracture with routine healing (principal); X58.XXXD Exposure to other specified factors, subsequent encounter
CPT/HCPCS: 73100

== ENCOUNTER 2024-08-16 08:48 | Outpatient (CLI) | payer OTHER, SELFPAY ==
[2024-08-16 13:01] LABS: Anion Gap 7.9 mmol/L (3-11); BUN 21 mg/dL (7-18); CO2 28.1 mmol/L (21.0-32.0); Calcium 9.6 mg/dL (8.5-10.1); Chloride 100 mmol/L (98-107); Glucose 90 mg/dL (74-106); Potassium 3.9 mmol/L (3.5-5.1); Sodium 136 mmol/L (136-145); TSH (W/Ref FT4) 0.68 uIU/mL (0.36-3.74)
== END 2024-08-16 08:49 | disposition home or self-care (01) ==
LOC: LOS 08:48
PROVIDERS: PCP Family Medicine; Referring Provider Family Medicine; Visit Provider Family Medicine
DX: I10 Essential (primary) hypertension (principal); E03.9 Hypothyroidism, unspecified; E03.8 Other specified hypothyroidism
CPT/HCPCS: 36415; 80048; 84443

== ENCOUNTER 2024-08-21 12:57 | Outpatient (CLI) | payer OTHER, SELFPAY ==
--- NOTE | 2024-08-21 11:00 | DI.RAD_ITS ---
Exam(s) XR THORACIC SPINE COMPLETE EXAM: XR THORACIC SPINE COMPLETE CLINICAL HISTORY: right thoracic spine pain M54.6 PAIN IN THORACIC SPINE. TECHNIQUE: 2D digital imaging was performed. Three views. COMPARISON: No exams were available for comparison FINDINGS: BONES: There is no fracture or destructive lesion. No evidence of compression fractures. Prominent endplate osteophytes projecting anteriorly and toward the right in the mid thoracic region. ALIGNMENT: Slight levoscoliosis. DISKS: Multilevel disc space narrowing. SOFT TISSUE: Visualized lungs are clear. IMPRESSION: Degenerative disc changes and prominent endplate osteophytes, worst in the mid thoracic region. DATA REPOSITORY: RADIATION DOSE DELIVERED:
== END 2024-08-21 13:17 ==
LOC: DI 12:58
PROVIDERS: PCP Family Medicine; Visit Provider Family Medicine
DX: M54.6 Pain in thoracic spine (principal)
CPT/HCPCS: 72072

== ENCOUNTER 2024-09-11 01:51 | Outpatient (CLI) | payer OTHER, SELFPAY ==
--- NOTE | 2024-09-11 06:15 | DI.US_ITS ---
Exam(s) US BREAST LT COMPLETE MG MAMMO SCREENING EXAM: MG MAMMO SCREENING AND COMPLETE LEFT BREAST ULTRASOUND CLINICAL HISTORY: screening,z12.39. TECHNIQUE: Bilateral full field digital CC and MLO mammographic images were obtained with 3D tomosyn thesis and utilizing computer aided detection (CAD). COMPARISON: Prior mammograms were reviewed. prior ultrasound was reviewed. this patient underwent ultrasound-guided core biopsy retroareolar lef t breast lesion on 03/27/2024. FINDINGS: No new right breast findings. In the left breast retroareolar region there is a biopsy marker clip adjacent to the previously biops ied nodule. The nodule appears slightly larger than previous. There are no malignant-appearing microcalcification groups at this level nor elsewhere in either re[address] st. No new architectural distortion or skin thickening-retraction. COMPLETE LEFT BREAST ULTRASOUND: The size of the retroareolar region nodule which underwent biopsy on 03/27/2024 has slightly increase d in size when compared to the ultrasound examination of 12/22/2023. Prior measurement of the nodule was 1.7 x 0.8 cm. Presently the nodule measures 2 x 1.0 cm. Again noted is a small adjacent microc yst which presently appears hemorrhagic. There are no other focal ultrasound findings in all 4 quadrants. Scanning of the left axilla is negative for significant adenopathy. IMPRESSION: The size of the recently biopsied nodule in the retroareolar region of the left breast appears to hav e slightly increased both on mammography and ultrasound, with measurements as above. Pathology repor t was reviewed. 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 Recommend surgical consultation for possible repeat b iopsy BI-RADS Category 4 - Suspicious Abnormality: Biopsy should be considered Breast Density - Category B - Scattered areas of fibroglandular density Report called by myself to Dr. Oleary 09/11/2024 at 9:45 a.m. Breast density Category C or D implies that the patient has dense breast tissue. Dense breast tissue can make it harder to find cancer on a mammogram. Dense breast tissue is also associated with an incr eased risk of breast cancer. This information about the result of the mammogram report was provided to the patient to raise their awareness. Use this report when you speak with the patient about their risks for breast cancer, which includes their family history. At that time, you may recommend additional screening tests (Ultrasoun d or MRI) as these tests may add significant information. A negative radiographic report should not delay biopsy if a dominant or clinically suspicious mass is present. Up to ten percent of cancers are not identified on mammography. A negative report may reinforce clinical impression. Adenosis and dense breasts may obscure an underlying neoplasm. False positive reports average 6 to 10%. Patient will receive a letter notifying them of these results.
== END 2024-09-11 02:11 ==
LOC: DI 01:51
PROVIDERS: PCP Family Medicine; Visit Provider Family Medicine
DX: Z12.31 Encounter for screening mammogram for malignant neoplasm of breast (principal); R92.8 Other abnormal and inconclusive findings on diagnostic imaging of breast; R92.323 Mammographic fibroglandular density, bilateral breasts
CPT/HCPCS: 76642; 77063; 77067

== ENCOUNTER 2024-09-26 01:08 | Outpatient (CLI) | payer OTHER, SELFPAY ==
--- NOTE | 2024-09-26 07:45 | DI.RAD_ITS ---
Exam(s) XR FOOT LT COMPLETE EXAM: XR FOOT LT COMPLETE CLINICAL HISTORY: Left foot pain,m79.672. TECHNIQUE: 2D digital imaging was performed of the left foot. Three images were obtained. AP, obli que and lateral views were obtained. COMPARISON: No exams were available for comparison FINDINGS: BONES: No acute fracture is present. No bony destructive lesion is seen. There is a small plantar michael caneal spur. JOINTS: No dislocation present. There is a mild hallux valgus deformity. The joint spaces are well m aintained. SOFT TISSUE: Normal. IMPRESSION: Mild hallux valgus deformity and plantar calcaneal spur. DATA REPOSITORY: RADIATION DOSE DELIVERED:
== END 2024-09-26 01:28 ==
LOC: DI 01:08
PROVIDERS: PCP Family Medicine; Visit Provider Podiatrist
DX: M79.672 Pain in left foot (principal)
CPT/HCPCS: 73630